=== PATIENT | female | born 1990 | race Native Hawaiian/Other Pacific Islander ===

== ENCOUNTER 2022-01-13 09:16 | Emergency (ER) | payer OTHER ==
[~2022-01-13] VITALS: Ht 170.2 cm; Wt 94.3 kg
[2022-01-13 09:25] VITALS: BP 131/70
--- NOTE | 2022-01-13 09:43 | NUR ---
WALKED SWETA AND ARIEL TO LAB, HANDED TO EQUINE INTERN
--- NOTE | 2022-01-13 10:03 | NUR ---
31 y/o female, c/o sob, cough, cp for 4 days. pt denies anyone sick at home with same s/s. PT STATES HER PAIN IS 7/10 IN LOWER CHEST WHEN SHE COUGHS. PT ON PULSE OX. LUNG SOUNDS ARE CLEAR ON ROM AIR. PT STATING AT 98. INTERMINTTENT NON-PRODUCTIVE COUGH. LUNG SOUNDS ARE CLEARPT RSTING IN BED. pmh: denies nka med: denies
--- NOTE | 2022-01-13 11:06 | NUR ---
DR TARIQ AT BEDSIDE
[2022-01-13 11:36] VITALS: BP 128/59
--- NOTE | 2022-01-13 12:04 | NUR ---
Patient discharged with v/s stable. Written and verbal after care instructions given ABOUT INFLUENZA and explained. Patient verbalized understanding. Ambulatory with to car. All questions addressed prior to discharge. Advised to follow up with PMD.
== END 2022-01-13 12:03 | disposition home or self-care (01) ==
LOC: MED 09:16
DX: J11.1 Influenza due to unidentified influenza virus with other respiratory manifestations (principal); Z20.822 Contact with and (suspected) exposure to COVID-19
CPT/HCPCS: 71045; 87426; 87804; 99284; Q0092